=== PATIENT | male | born 1985 | race African-American/Black ===

== ENCOUNTER 2017-02-23 12:58 | Emergency (ER) | payer OTHER ==
[~2017-02-23] VITALS: Ht 180.3 cm; Wt 75.0 kg
[~2017-02-23 12:58] MED LIST: DOXY100T PO; TUSSSUS PO; Z.0.NO CURRENT MEDS
[2017-02-23 13:24] VITALS: BP 131/85; PULSE 61; RESP 14; TEMP 99; O2SAT 100
[2017-02-23] MEDS ORDERED: ORPHENADRINE INJ 60 MG/2 ML AMP IM ONE (13:30)
[2017-02-23] MEDS ORDERED: KETOROLAC TROMETHAMINE 60 MG/2 ML (IM) VIAL IM ONE (13:30)
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
[2017-02-23] MEDS ORDERED: ROBA500T PO (14:59)
== END 2017-02-23 15:56 | disposition home or self-care (01) ==
LOC: NEPD 12:58
DX: M54.5 Low back pain (principal); V43.52XA Car driver injured in collision with other type car in traffic accident, initial encounter; Z79.899 Other long term (current) drug therapy
CPT/HCPCS: 72100; 72170; 96372; 99284; J1885; J2360